=== PATIENT | male | born 1980 | race Caucasian/White ===

== ENCOUNTER 2021-11-24 08:33 | Inpatient (IN) ==
[2021-11-24] MEDS ORDERED: dexAMETHasone**PF** 10 MG/ML VIAL IV ONE (08:49)
--- NOTE | 2021-11-24 08:49 | Emergency Department Note ---
Impression & Plan 2019 novel coronavirus-infected pneumonia (NCIP), Hypoxia, Weakness ED Provider Note Provider: Gurinder Meyer MD DATE OF SERVICE: 11/24/2021 CHIEF COMPLAINT: Short of breath, chest pain, weakness HISTORY OF PRESENT ILLNESS: Patient is a 41-year-old gentleman otherwise healthy presenting here today via ambulance from his house with worsening Covid type symptoms. Patient states he became sick about 7 days ago last weekend with cold symptoms. Was here 2 days ago and tested positive for Covid. Patient states has been monitoring his pulse ox at home but this morning dropped into the high 80s and he was unable to sleep and was feeling worse and thus came in. He reports he discussed with a family friend who is a physician who recommended this as well. Patient states he has some mild chest discomfort and intermittent headaches. Had a fever yesterday followed by yesterday evening but again worsened overnight. Nurses diarrhea but no abdominal pain. No syncope or falls reported. Patient is not vaccinated for Covid. Did not have any Tylenol or Motrin this morning. Reports his was sick several weeks ago and his son currently has a head cold. Patient states he feels like he is dehydrated. REVIEW OF SYSTEMS: A total of 10 review of systems was obtained and negative except as stated above in the HPI. PAST MEDICAL HISTORY: As noted above MEDICATIONS: Reviewed home medications SOCIAL HISTORY: Lives at home with and son PHYSICAL EXAM: GENERAL: alert and oriented in no acute distress on stretcher however fatigued appearing Head: normocephalic and atraumatic EYES: No injection, discharge or icterus. NECK: Trachea midline. ENT: Mucous membranes pink and moist. LUNGS: Airway patent. No retractions mild tachypnea. HEART: Regular tachycardic rate and rhythm. No chest wall tenderness ABDOMEN: Soft and non-tender, without guarding or rebound. SKIN: Acyanotic, warm, dry, without rashes EXTREMITIES: Without swelling, tenderness or deformity NEUROLOGICAL: No focal deficits. No aphasia. No facial droop or slurred speech. Ambulatory but slightly unsteady EK bpm sinus tachycardia. No PVC or PAC. No acute ST segment elevation or depression with lead III T wave inversion. QTC 411. CONTINUOUS CARDIAC MONITORING: was ordered and showed a heart rate of 90s-120s bpm in sinus tachycardia/NSR Patient's laboratory studies and imaging reviewed. Differential includes Infection, dehydration, metabolic abnormality, hypo/hyperglycemia, electrolyte disturbance, anemia, hypoxia, cardiac sources, intracerebral event, toxicologic, neurologic, as well as other pathologies. IMPRESSION/MEDICAL DECISION MAKING: Patient 90 to 92% resting on stretcher on room air initially but with any activity even transfer from chair to bed the patient desaturated in the high 80s and slightly later becomes hypoxic even at rest in the high 80s. He is unvaccinated. Approximately week and his symptoms. Given 6mg dexamethasone. Given Tylenol for fever. Given a small amount of IV fluids given decreased intake and tachycardia. Reviewed recent evaluation here 2 days ago. Positive Covid test at the time as well as CT of the chest without evidence of PE. Do no t feel we need a repeat this at this time. Reorts some mild chest discomfort likely more related to Covid but an EKG and troponin were completed.exclude cardiac injury. Mild leukopenia consistent with viral Covid infection. No anemia. Renal function stable. Mild hyponatremia. No troponin elevation. CRP elevated consistent with viral inflammatory state from Covid. Chest x-ray reviewed and radiology report reviewed with worsened bilateral inflammatory findings. Given oxygen requirement discussed with the patient hospitalist will be consulted for further care here. DIAGNOSIS: COVID-19 pneumonia, weakness, hypoxia DISPOSITION: Hospitalist will evaluate Patient was agreeable with this plan. Past Med/Surg History Social History Smoking Status: Never smoker Hx Alcohol Use: No Hx Substance Use: No Preferred Language: Maori Communication Ability: Effective Environmental Monitoring Technician Required: No Beliefs That Will Affect Care: None Current Living Situation: Spouse and Family Feels Safe at Home: Yes Safety Concerns: Feels Safe At This Time Assistive Devices: Glasses Allergies Allergies Allergy/AdvReac Type Severity Reaction Status Date / Time No Known Allergies Allergy Unverified 11/24/21 08:53 Home Meds Home Medications Medication Instructions Recorded Confirmed ascorbic acid (vitamin C) 500 mg 0 mg PO DAILY 11/22/21 11/24/21 tablet (Vitamin C) cholecalciferol (vitamin D3) 25 0 mcg PO DAILY 11/22/21 11/24/21 mcg (1,000 unit) tablet (Vitamin D3) coenzyme Q10 30 mg capsule (CoQ-10) 0 mg PO DAILY 11/22/21 11/24/21 zinc 50 mg tablet 0 mg PO DAILY 11/22/21 11/24/21 Results & Data (ED) Vital Signs Vital Signs - 24 hr 11/24/21 08:50 11/24/21 08:55 11/24/21 10:23 Temperature 38.7 C H Temperature Source Oral Pulse Rate 118 H Pulse Rate [Apical] 118 H 103 H Pulse Rhythm Regular Pulse Rhythm [Apical] Regular Pulse Strength Normal Pulse Strength [Apical] Normal Respiratory Rate 23 22 Respiratory Effort / Characteristics Non-Labored Respiratory Depth Normal Respiratory Pattern Regular Blood Pressure 115/86 Blood Pressure [Right Arm] 115/86 103/65 Blood Pressure Mean 95 Blood Pressure Mean [Right Arm] 95 77 Blood Pressure Position Sitting Blood Pressure Position [Right Arm] Sitting Pulse Oximetry 87 L 93 93 Oxygen Delivery Method Room Air Nasal Cannula Nasal Cannula Oxygen Flow Rate 2 2 Sepsis Recent Fever Within 48 Hours Yes Sepsis New/Unexplained Change in Mental Status No Sepsis Action Taken by Nursing Physician Notified Laboratory Data Result diagrams: 11/24/21 08:45 11/24/21 08:45 Lab Results 11/24/21 11/24/21 Range/Units 08:45 08:45 WBC 4.61 L (4.8-10.8) K/uL RBC 5.33 (4.7-6.1) M/uL Hgb 16.0 (14.0-18.0) g/dL Hct 46.0 (42-52) % MCV 86.3 (80-100) fL MCH 30.0 (25-34) pg MCHC 34.8 (32-36) g/dL RDW Std Deviation 41.1 (36.4-46.3) fL RDW Coeff of Susie 12.9 (11.5-14.5) % Plt Count 110 L (130-400) K/uL MPV 11.0 H (7.4-10.4) fL Immature Gran % (Auto) 0.0 % Neut % (Auto) 74.6 % Lymph % (Auto) 22.1 % Piute % (Auto) 3.3 % Eos % (Auto) 0.0 % Baso % (Auto) 0.0 % Neut # (Auto) 3.44 (1.4-6.5) K/uL Lymph # (Auto) 1.02 L (1.2-3.4) K/uL Piute # (Auto) 0.15 (0.11-0.59) K/uL Eos # (Auto) 0.00 (0-0.5) K/uL Baso # (Auto) 0.00 (0-0.2) K/uL Immature Gran # (Auto) 0.00 (0.00-0.02) K/uL Sodium 133 L (136-145) mmol/L Potassium 3.4 L (3.5-5.1) mmol/L Chloride 100 (98-107) mmol/L Carbon Dioxide 26 (21-32) mmol/L Anion Gap 7.0 (3-11) BUN 19 H (7-18) mg/dl Creatinine 1.35 (0.6-1.4) mg/dl Est Cr Clr Drug Dosing 88.1 ml/min Est GFR ( Amer) 76.1 ml/min Est GFR (Non-Af Amer) 65.7 ml/min BUN/Creatinine Ratio 14.0 (10-20) Glucose 116 H (70-99) mg/dl Calcium 8.2 L (8.5-10.1) mg/dl Total Bilirubin 0.7 (0.2-1) mg/dl AST 40 H (15-37) U/L ALT 47 (12-78) Alkaline Phosphatase 83 (45-117) U/L Troponin I < 0.015 (0-0.045) ng/ml C-Reactive Protein 4.18 H (0-0.29) mg/dl Total Protein 7.4 (6.4-8.2) gm/dl Albumin 3.5 (3.4-5.0) gm/dl Globulin 3.9 (2.5-4.0) gm/dl Albumin/Globulin Ratio 0.9 (0.9-2) Administered Medications Enoxaparin Sodium (Enoxaparin Inj 60 Mg/0.6 Ml Syr) 50 mg SQ Q12 RUBEN Stop: 12/24/21 12:59 Last Admin: 11/24/21 14:22 Dose: 50 mg Documented by: [id number] Potassium Chloride (Potassium Chloride Crtab 20 Meq Tabcr) 20 meq PO BID RUBEN Stop: 11/25/21 09:01 Last Admin: 11/24/21 14:22 Dose: 20 meq Documented by: [id number] Discontinued Medications Acetaminophen (Acetaminophen 500 Mg Tab) 1,000 mg PO NOW STA Stop: 11/24/21 09:07 Last Admin: 11/24/21 09:14 Dose: 1,000 mg Documented by: [id number] Dexamethasone Sodium Phosphate (DexamethasonePf 10 Mg/Ml Vial) 6 mg IV NOW ONE Stop: 11/24/21 08:50 Last Admin: 11/24/21 09:14 Dose: 6 mg Documented by: [id number] Sodium Chloride (Nss) 500 mls @ 999 mls/hr IV .Q31M RUBEN Stop: 11/24/21 09:30 Last Infusion: 11/24/21 10:00 Dose: 0 mls/hr Documented by: [id number] Admin: 11/24/21 09:14 Dose: 999 mls/hr Documented by: [id number] Imaging Data Radiologist's Impression: Chest X-Ray 11/24/21 08:46 XR chest 1V portable CLINICAL HISTORY: sob, covid TECHNIQUE: Single frontal radiograph of the chest was obtained. Comparison: Comparison is made to chest one view 11/22/2021 FINDINGS: No lines and tubes are seen. The cardiomediastinal silhouette is normal. Multifocal airspace opacities are seen. No evidence of pleural effusion or pneumothorax. IMPRESSION: Multifocal airspace opacities compatible with history of viral pneumonia. ACT 112: Negative or not required by law. Electronically signed by: Stew Ron M.D. 11/24/2021 9:21 AM Discharge Plan Visit Data Chief Complaint: Illness Stated Complaint: CONGESTION, SOB, COVID + ED Provider: Gurinder Meyer Discharge Problem: 2019 novel coronavirus-infected pneumonia (NCIP), Hypoxia, Weakness Patient Disposition: Being Evaluated by Hospitalist Discharge Instructions Interventions: ED Discharge Assessment Last Done: 11/24/21 12:29
[2021-11-24 08:53] LABS: Lymphocytes # (auto) 1.02 K/uL (1.2-3.4); Lymphocytes % (auto) 22.1 %; Mean Corpuscular Hgb Conc 34.8 g/dL (32-36); Mean Corpuscular Volume 86.3 fL (80-100); Monocytes # (auto) 0.15 K/uL (0.11-0.59); Monocytes % (auto) 3.3 %; Neutrophils # (auto) 3.44 K/uL (1.4-6.5); Neutrophils % (auto) 74.6 %; Platelet Count 110 K/uL (130-400); RDW Coefficient of Variation 12.9 % (11.5-14.5); RDW Standard Deviation 41.1 fL (36.4-46.3); Red Blood Count 5.33 M/uL (4.7-6.1); White Blood Count 4.61 K/uL (4.8-10.8)
[2021-11-24] MEDS ORDERED: SODIUM CHLORIDE 0.9% 500 ML IV SCH (09:00)
[2021-11-24] MEDS ORDERED: ACETAMINOPHEN 500 MG TAB PO STA (09:06)
[2021-11-24 09:10] LABS: Blood Urea Nitrogen 19 mg/dl (7-18); Carbon Dioxide 26 mmol/L (21-32); Chloride 100 mmol/L (98-107); Est GFR (African American) 76.1 ml/min; Potassium 3.4 mmol/L (3.5-5.1); Sodium 133 mmol/L (136-145)
[2021-11-24 09:11] LABS: Alanine Aminotransferase 47 (12-78); Albumin Level 3.5 gm/dl (3.4-5.0); Aspartate Aminotransferase 40 U/L (15-37); C Reactive Protein 4.18 mg/dl (0-0.29); Calcium 8.2 mg/dl (8.5-10.1); Creatinine Clr Calc Pharmacy 88.1 ml/min; Est GFR (Non-African American) 65.7 ml/min; Glucose 116 mg/dl (70-99)
[2021-11-24 09:15] LABS: Albumin Globulin Ratio 0.9 (0.9-2); Alkaline Phosphatase 83 U/L (45-117); Globulin 3.9 gm/dl (2.5-4.0); Total Protein 7.4 gm/dl (6.4-8.2); Troponin I < 0.015 ng/ml (0-0.045)
[2021-11-24 09:21] LABS: Bilirubin,Total 0.7 mg/dl (0.2-1)
--- NOTE | 2021-11-24 09:22 | XRay Report ---
XR chest 1V portable CLINICAL HISTORY: sob, covid TECHNIQUE: Single frontal radiograph of the chest was obtained. Comparison: Comparison is made to chest one view 11/22/2021 FINDINGS: No lines and tubes are seen. The cardiomediastinal silhouette is normal. Multifocal airspace opacitie s are seen. No evidence of pleural effusion or pneumothorax. IMPRESSION: Multifocal airspace opacities compatible with history of viral pneumonia. ACT 112: Negative or not required by law. Electronically signed by: Stew Ron M.D. 11/24/2021 9:21 AM
--- NOTE | 2021-11-24 10:44 | History & Physical Report ---
Date of Service November 24, 2021 Assessment & Plan (1) Acute respiratory failure with hypoxia: Plan: Acute hypoxic respiratory failure secondary to Covid pneumonia. Patient will be brought in for oxygen supplementation and dexamethasone. Patient refuses remdesivir at this time. Patient is unvaccinated. Patient was educated on the benefit of proning. Patient was initially hydrated in the ER he continues have some diarrhea and does have loss of taste or smell First symptoms: ~11/17/21 First tested: in our system 11/22/21 Vaccinated: No Admission date: 11/24/21 Admission O2 requirement: 2L Admission CRP: 4.18 Dexamethasone course started: 11/24/21 Remdesivir started: pt refused Remdesivir contraindication: Tocilizumab given/baricitinib started: not meeting criteria on admission Tocilizumab/baricitinib contraindication: Antibiotics: not started (2) Hypokalemia: Plan: Likely from poor nutrition and diarrhea Augmentin orally patient willing to try clear liquid diet Plan: Patient is a full code. He will be on DVT Covid prevention with enoxaparin 0.5 mg/kg subcu every 12 History of Present Illness Primary Care Provider: NO PCP Allergies Allergy/AdvReac Type Severity Reaction Status Date / Time No Known Allergies Allergy Unverified 11/24/21 08:53 Home Medications Medication Instructions Recorded Confirmed Type ascorbic acid (vitamin C) 500 mg 0 mg PO DAILY 11/22/21 11/24/21 History tablet (Vitamin C) cholecalciferol (vitamin D3) 25 0 mcg PO DAILY 11/22/21 11/24/21 History mcg (1,000 unit) tablet (Vitamin D3) coenzyme Q10 30 mg capsule (CoQ-10) 0 mg PO DAILY 11/22/21 11/24/21 History zinc 50 mg tablet 0 mg PO DAILY 11/22/21 11/24/21 History Past Med/Surg History Social History Smoking Status: Never smoker Feels Safe at Home: Yes Review of Systems Review of Systems: Moderate distress and extreme fatigue no headache, no visual changes no speech or swallowing issues no chest pain, pressure or palpitations Continue shortness of breath, nonproductive cough or wheezes no abdominal pain, nausea or vomiting, is having diarrhea decreased appetite no dysuria, hematuria or frequency no focal joint pain or swelling no back pain, CVA tenderness or radicular pain no bruising, bleeding or rashes no focal signs of weakness or numbness or altered sensation no complaints of anxiety or depression.. Physical Exam Physical Exam: The patient appeared mild to moderate respiratory distress Vital signs as documented. Head exam is normocephalic atraumatic he has glossy eyes with conjunctival injection Neck is without JVD, thyromegaly, or carotid bruits. Lungs are coarse bilaterally in all lung smith tachypnea worse rhonchi heard at the right base Cardiac exam, Rhythm is regular.. No murmurs, rubs or gallops. Abdominal exam reveals normal bowel sounds, soft non tender, no masses Extremities are nonedematous and both pedal pulses are present Neurologic exam is alert and oriented, no focal loss of strength or sensation Skin is without bruises or rashes Psychologically is without concerns for anxiety or depression.. Results & Data Results & Data ([facility]) Vital Signs (Past 12 Hours) Vital Signs Temp Pulse Pulse Resp BP BP Pulse Ox 11/24/21 10:23 103 H 22 103/65 93 11/24/21 08:55 93 11/24/21 08:50 101.7 F H 118 H 118 H 23 115/86 115/86 87 L Diagnostic Findings Chest X-Ray 11/24/21 08:46 XR chest 1V portable CLINICAL HISTORY: sob, covid TECHNIQUE: Single frontal radiograph of the chest was obtained. Comparison: Comparison is made to chest one view 11/22/2021 FINDINGS: No lines and tubes are seen. The cardiomediastinal silhouette is normal. Multifocal airspace opacities are seen. No evidence of pleural effusion or pneumothorax. IMPRESSION: Multifocal airspace opacities compatible with history of viral pneumonia. Electronically signed by: Stew Ron M.D. 11/24/2021 9:21 AM ECG Additional Comments: Sinus tachycardia with no acute ST or T wave changes Code Status & VTE Plan VTE Prophylaxis Plan VTE Prophylaxis will be ordered: Yes PG Care Time/CCT Total # of Minutes Spent Total Time Spent with Patient: Total time spent is greater than 50% in coordination of care (as documented) at patient's floor/unit and/or counseling patient: Coding Level of Care Code 52266 Initial Inpt Care Lvl 2 Diagnoses Acute respiratory failure with hypoxia J96.01 Hypokalemia E87.6
[2021-11-24] MEDS ORDERED: POLYETHYLENE (MIRALAX) 17 GM PACK PO PRN (12:35)
[2021-11-24] MEDS ORDERED: ONDANSETRON INJ 2 MG/ML 2 ML VIAL IV PRN (12:35)
[2021-11-24] MEDS ORDERED: ACETAMINOPHEN 500 MG TAB PO PRN (12:35)
[2021-11-24] MEDS ORDERED: ALUMINUM/MAGNESIUM SUSP 30 ML UDC PO PRN (12:35)
[2021-11-24] MEDS ORDERED: ENOXAPARIN 0.5 MG/KG SQ SCH (12:35)
[2021-11-24] MEDS: ENOXAPARIN INJ 60 MG/0.6 ML SYR SQ SCH ×2 (14:22→22:44)
[2021-11-24] MEDS: POTASSIUM CHLORIDE CRTAB 20 MEQ TABCR PO SCH ×2 (14:22→21:37)
[2021-11-24] MEDS ORDERED: guaiFENesin/DEXTROM SYRUP 100MG/10MG 5ML UDC PO PRN (20:25)
[2021-11-25] MEDS: ENOXAPARIN INJ 60 MG/0.6 ML SYR SQ SCH (08:00)
[2021-11-25] MEDS: POTASSIUM CHLORIDE CRTAB 20 MEQ TABCR PO SCH (08:01)
[2021-11-25 08:09] LABS: Adenovirus F 40/41 PCR Not Detected (NotDetected); Astrovirus PCR Not Detected (NotDetected); Campylobacter PCR Not Detected (NotDetected); Clostridium diff Toxin A/B PCR Not Detected (NotDetected); Cryptosporidium PCR Not Detected (NotDetected); Cyclospora cayetanensis PCR Not Detected (NotDetected); Entamoeba histolytica PCR Not Detected (NotDetected); Enteroaggregative E.coli(EAEC) Not Detected (NotDetected); Enteropathogenic E.coli (EPEC) Not Detected (NotDetected); Enterotoxigenic E.coli (ETEC) Not Detected (NotDetected); Giardia lamblia PCR Not Detected (NotDetected); Norovirus GI/GII PCR Not Detected (NotDetected); Plesiomonas shigelloides PCR Not Detected (NotDetected); Rotavirus A PCR Not Detected (NotDetected); Salmonella PCR Not Detected (NotDetected); Sapovirus PCR Not Detected (NotDetected); Shiga-like Toxin E.coli (STEC) Not Detected (NotDetected); Shigella/Enteroinvasive E.coli Not Detected (NotDetected); Vibrio cholerae PCR Not Detected (NotDetected); Vibrio species PCR Not Detected (NotDetected); Yersinia enterocolitica PCR Not Detected (NotDetected)
[2021-11-25] MEDS ORDERED: CHOLECALCIFEROL 1,000 UNITS 25 MCG TAB PO SCH (09:00)
[2021-11-25] MEDS ORDERED: dexAMETHasone 6 MG in SYRINGE 0 ML IV SCH (09:00)
[2021-11-25] MEDS ORDERED: ASCORBIC ACID 500 MG TAB PO SCH (09:00)
[2021-11-25] MEDS ORDERED: ZINC SULFATE 220 MG CAPSULE PO SCH (09:00)
[2021-11-25 10:26] LABS: Albumin Level 3.3 gm/dl (3.4-5.0); Bilirubin Direct 0.2 mg/dl (0-0.2); Total Protein 7.2 gm/dl (6.4-8.2)
[2021-11-25 10:31] LABS: Bilirubin,Total 0.7 mg/dl (0.2-1)
[2021-11-25] MEDS ORDERED: LOPERAMIDE HCL 2 MG CAP PO STA (11:02)
--- NOTE | 2021-11-25 14:28 | Discharge Summary ---
Date of Service November 25, 2021 Principal Diagnosis acute hypoxic respiratory failure covid 19 infection diarrhea from covid infection Discharge Exam The patient appeared in moderate respiratory distress he looked ill Vital signs as documented. Head exam is normocephalic atraumatic Lungs are coarse bilaterally in all lung smith tachypnea Cardiac exam, Rhythm is tachycardic Abdominal exam reveals normal bowel sounds, soft non tender, no masses Extremities are nonedematous and both pedal pulses are present Neurologic exam is alert and oriented, no focal loss of strength or sensation Discharge Data Allergies Allergy/AdvReac Type Severity Reaction Status Date / Time No Known Allergies Allergy Unverified 11/24/21 08:53 Consultations 11/24/21 10:14 ED Decision to Admit Stat 11/25/21 09:06 Burn CD for patient Routine Hospital Course (1) Acute respiratory failure with hypoxia: Acute hypoxic respiratory failure secondary to Covid pneumonia. Patient will be brought in for oxygen supplementation and dexamethasone. Patient r efuses remdesivir at this time. Patient is unvaccinated. Patient was educated on the benefit of proning. Patient was initially hydrated in the ER he continues have some diarrhea and does have loss of taste or smell First symptoms: ~11/17/21 First tested: in our system 11/22/21 Vaccinated: No Admission date: 11/24/21 Admission O2 requirement: 2L Admission CRP: 4.18 Dexamethasone course started: 11/24/21 Remdesivir started: pt refused Remdesivir contraindication: Tocilizumab given/baricitinib started: not meeting criteria on admission Tocilizumab/baricitinib contraindication: Antibiotics: not started On the morning of November 26 I received sign out information from the nighttime on-call physician that the patient's family is planning on taking him to a clinic in the [facility]. Sometime in the morning approximately 8:00 or so I did receive a phone call from Dr. Whittington, who identified himself as a director of this clinic and that he will to be glad to take care of this patient if they are able to come to [place]. I informed this physician that the patient had escalated oxygen requirements and that I did not believe he was well enough to come to this clinic. The physician's casino assistant manager on the phone whom I believe was named Ita stated that I was obstructing his discharged to their care and requested that I did not provide a barrier with his family to come to the clinic. Dr. Wallace apologized for this person's tone and said he be more than happy to take care of this patient and that the family had arranged to have a van with an oxygen concentrator and it they can go 10 L/min take him from our facility to his clinic [place]. I asked the physician to provide me information of the therapy they were administering at their clinic which he described as mitochondrial cofactor infusions and states this was corroborated in an article out of [place] for the treatment of Covid. After this phone call I spoke to the patient. The patient states that he indeed was planning on traveling to [place] and his is arranging transport. I told the patient I felt that he was unstable for transfer he said he was going to go whether I permitted to go or not. Subsequently I spoke to the patient's on the phone who did did state she had arranged transportation to come around 11:30 AM this would be a van with an oxygen supply device within it. She states she will monitor his oxygen saturations in route and would stop their travels if he becomes more ill. I met the , family members, and the Van at the time the patient was wheeled to leave the hospital. The patient looked ill. The states she understands that transporting him may may place his life in danger. I told the with specific words that she could be placing him in a situation that could harm or end his life. She assured me she would dust puller at the nearest hospital if he becomes more ill. I Once again stated that I did not support this plan and wished to keep him in our hospital at which time I was questioned about what additional therapy is being planned to threat this patient. I informed them that we would give him therapy as outlined by the current recommendations of covid treatment validated by reputable sources, such as Centers for Disease Control. They stated they did not trust the Centers for Disease Control and did not wish for him to have any further care in our facility. At this point in time the nurse helped the patient get into the van, and the van left the front of our building with the patient inside. I did not have the pt sign ama papers but I fully believe the patient and the are fully understanding that taking him from our facility places his life in jeopardy. At the time I spoke to the patient himself his oxygen saturations were in excess of 90% as seen at the bedside oxymeter (2) Hypokalemia: Likely from poor nutrition and diarrhea Augmented orally, patient initilly placed on a clear liquid diet Patient is a full code. He was on DVT Covid prevention with enoxaparin 0.5 mg/kg subcu every 12 Total Time Total Time Spent Total Time Spent (In Minutes): It required greater than 30 minutes to prepare this patient for discharge Discharge Plan Discharge Items Patient Disposition: Home - Self-Care Reason For Visit: ACUTE HYPOXIC RESPIRATORY FAILURE, COVID PNEUMONIA Discharge Diagnosis: covid pneumonia pt released by request of [facility] that specializes of covid treatment Activity: Per Instructions section Activity Comment: please wear oxygen at all times to keep saturations > 90 Non-emergency contact: Primary Care Provider Call non-emergency contact if: your symptoms worsen and you have a fever Follow-up/Referrals: PCP,NO [Primary Care Provider] - Diet: Regular Addtl Attending Provider Instructions: First and foremost the staff caring for her about any was usual on your divers to find treatment for your Covid infection Is highly irregular that you are discharged on such a high oxygen amount and I stressed to both you and your that if you feel ill on your travels to [place] you should seek immediate medical care. You should wear oxygen at all times during your trip however if your oxygen level would become low, as I am unclear of the way or will monitor your oxygen saturation, you may suffer injury to your internal organs including your brain and kidneys. If it anytime upon the journey you become lethargic or become confused I would urge you and your family to seek to the nearest local medical care immediately. I did speak with Dr. Whittington over the phone he is excepting you into their clinic and I wish you best of luck in treating this disease and with safe travels Pending Studies at Discharge: Yes Studies:: cultures Stand-Alone Forms: My [employer], Smoking Cessation Medications and DC Order Prescriptions: New (DME) Oxygen Home Liters Per Minute See Rx Instructions .ROUTE Qty: 10 RF: 0 Continued ascorbic acid (vitamin C) [Vitamin C] 500 mg Tablet 0 mg PO DAILY RF: 0 zinc 50 mg Tablet 0 mg PO DAILY RF: 0 coenzyme Q10 [CoQ-10] 30 mg Capsule 0 mg PO DAILY RF: 0 cholecalciferol (vitamin D3) [Vitamin D3] 25 mcg (1,000 unit) Tablet 0 mcg PO DAILY RF: 0 Discharge Orders: Discharge Order (Routine); Ordered 11/25/21 Ordered By: Femi Moss Admission Data Admit Date/Time: 11/24/21 10:37 Attending Provider: Femi Moss Admit Provider: Femi Moss Primary Care Provider: PCP,NO Other Providers: Femi Moss Other Interventions: Discharge Summary Assessment (RN) Last Done: 11/25/21 09:18 Coding Level of Care Code D/C DAY MANAGEMENT >30 MINS Diagnoses Acute respiratory failure with hypoxia J96.01 Hypokalemia E87.6
--- NOTE | 2021-11-25 21:46 | Electrocardiogram Report ---
Test Reason : Blood Pressure : / mmHG Vent. Rate : 113 BPM Atrial Rate : 113 BPM P-R Int : 150 ms QRS Dur : 088 ms QT Int : 300 ms P-R-T Axes : 008 067 001 degrees QTc Int : 411 ms Sinus tachycardia Otherwise normal ECG When compared with ECG of 22-NOV-2021 21:35, No significant change was found Confirmed by Valdez Tao ([id number]) on 11/25/2021 9:46:40 PM Referred By: REFERRED SELF Confirmed By:Valdez Tao
== END 2021-11-25 13:50 | disposition home or self-care (01) | DRG 177 ==
LOC: ED 08:33 → EDINP 10:37 → 2W 12:29